=== PATIENT | female | born 2000 | race Caucasian/White ===

== ENCOUNTER 2020-12-07 12:01 | Emergency (ER) | payer OTHER ==
[~2020-12-07] VITALS: Ht 160 cm; Wt 49.9 kg
--- NOTE | 2020-12-07 12:14 | NUR ---
DR CASTILLO AT THE BEDSIDE
--- NOTE | 2020-12-07 12:15 | NUR ---
The patient bibs for L sided chest pain x 24 hours. tachy, anxious [employer]. Rates chest pain 4/10. In room air and denies SOB. Respiration regular and unlabored. The patient is attached to the monitor. Warm blanket provided for comfort. Will continue to monitor the patient.
[2020-12-07] MEDS ORDERED: IBUPROFEN 400 MG TABLET ONE (13:57)
[2020-12-07] MEDS ORDERED: IBUPROFEN 400 MG TABLET PO ONE (14:00)
[2020-12-07 14:11] VITALS: BP 123/79
--- NOTE | 2020-12-07 14:11 | NUR ---
PATIENT A/OX4, BREATHING EVEN AND UNLABORED, NO SOB NOTED. NEEDS ATTENDED. KEPT COMFORTABLE. PATIENT GIVEN COPIES OF EKG RESULT. Patient discharged to home in stable condition. Written and verbal after care instructions given. Patient verbalizes understanding of instruction.
== END 2020-12-07 14:11 | disposition home or self-care (01) ==
LOC: ER 13:04
DX: R07.89 Other chest pain (principal)
CPT/HCPCS: 36415; 71045-TC; 84484-TC; 84702-TC; 85378-TC